=== PATIENT | male | born 1980 | race Caucasian/White ===

== ENCOUNTER 2022-10-14 20:16 | Emergency (ER) | payer OTHER ==
[~2022-10-14] VITALS: Ht 190.5 cm; Wt 127.0 kg
[~2022-10-14 20:16] MED LIST: PRILOSEC20 MG PO
[2022-10-14] MEDS ORDERED: PAXLOVID 300-11 EACH PO (21:56)
[2022-10-14 22:33] VITALS: BP 146/79
== END 2022-10-14 22:36 | disposition home or self-care (01) ==
LOC: ED 20:16
DX: U07.1 COVID-19 (principal); G43.909 Migraine, unspecified, not intractable, without status migrainosus; Z87.891 Personal history of nicotine dependence; Z91.013 Allergy to seafood; Z91.048 Other nonmedicinal substance allergy status
CPT/HCPCS: 71045; 87502; 96374; 96375; 99283 25; J0780; J1200; J1885; J7121; U0002